=== PATIENT | male | born 1960 | race Caucasian/White ===

== ENCOUNTER → 2022-02-24 | Outpatient (CLI) | payer OTHER | LOC: CT 08:22 | DX: I73.9 Peripheral vascular disease, unspecified (principal); I75.029 Atheroembolism of unspecified lower extremity; I77.1 Stricture of artery | CPT/HCPCS: 36415; 75635; 82565; 84520; Q9967 ==

== ENCOUNTER 2022-04-11 12:24 | Emergency (ER) | payer OTHER ==
[2022-04-11 15:05] LABS: HEMOGLOBIN 12.7 gm/dl (14.0-17.5); RED BLOOD COUNT 4.18 M/UL (4.20-5.50); WHITE BLOOD COUNT 6.4 K/UL (4.5-11.0)
[2022-04-11 15:27] LABS: BUN/CREATININE RATIO 16 (0-10)
[2022-04-11] MEDS ORDERED: VOLTAREN ARTHRI20 GM TP (18:02)
[2022-04-11] MEDS ORDERED: NORFLEX 100 MG100 MG PO (18:02)
== END 2022-04-11 18:10 | disposition home or self-care (01) ==
LOC: ER1 12:24
PROVIDERS: Physician Assistant Medical
DX: I73.9 Peripheral vascular disease, unspecified (principal); M54.50 Low back pain, unspecified; E78.5 Hyperlipidemia, unspecified; I10 Essential (primary) hypertension; J44.9 Chronic obstructive pulmonary disease, unspecified; F17.210 Nicotine dependence, cigarettes, uncomplicated
CPT/HCPCS: 72131; 75635; 80053; 85025; 85610; 93926; 93971; 99284; Q9967